=== PATIENT | male | born 1985 | race Hispanic/Latino ===

== ENCOUNTER 2017-05-19 19:35 | Emergency (ER) | payer OTHER ==
[2017-05-19 19:58] VITALS: BP 144/87; PULSE 90; RESP 16; TEMP 98.6; O2SAT 100
[2017-05-19] MEDS ORDERED: Amoxicillin-Clav 875-125 mg Tab PO STA (20:28)
[2017-05-19] MEDS ORDERED: Lidocaine 1% Inj (20ml) IJ STA (20:28)
[2017-05-19] MEDS ORDERED: Tdap Vaccine 0.5 ml Vial (10-64 yrs) IM ONE ×2 (20:28→21:01)
--- NOTE | 2017-05-19 20:31 | ED PDOC ---
HPI: Skin/Bite Injury Time Seen by Provider: 05/19/17 20:07 Chief Complaint (Nursing): Lower Extremity Problem/Injury Chief Complaint (Provider): Dog bite History Per: Patient History/Exam Limitations: no limitations Onset/Duration Of Symptoms: Mins (just prior to arrival) Current Symptoms Are (Timing): Still Present Additional Complaint(s): 32 year old male presents to the emergency room for evaluation of a dog bite sustained just prior to arrival. Patient was bit by his own dog, whose vaccines are up to date. He states his dog became agitated after another dog across the street began barking, and patient was bit on the right leg when he attempted to restrain his dog. Patient's tetanus is not up to date. PMD: None - Animal Bite Description Of The Animal: Family Pet Animal's Immunization Status: UTD Past Medical History Reviewed: Historical Data, Nursing Documentation, Vital Signs Vital Signs: Last Vital Signs Temp 98.6 F 05/19/17 19:55 Pulse 90 05/19/17 19:55 Resp 16 05/19/17 19:55 BP 144/87 05/19/17 19:55 Pulse Ox 100 05/19/17 20:35 - Medical History PMH: No Chronic Diseases - Surgical History Other surgeries: Cleft palate repair surgery as - Family History Family History: States: Unknown Family Hx - Living Arrangements Living Arrangements: With Family - Social History Current smoker - smoking cessation education provided: No Alcohol: Social Drugs: Denies - Immunization History Hx Tetanus Toxoid Vaccination: No - Home Medications Home Medications: Ambulatory Orders Medication Instructions Recorded Amoxicillin/Clavulanate [Augmentin 1 tab PO BID #14 tab 05/19/17 875 MG-125 MG] - Allergies Allergies/Adverse Reactions: Allergies Allergy/AdvReac Type Severity Reaction Status Date / Time No Known Allergies Allergy Verified 05/19/17 19:55 Review of Systems ROS Statement: Except As Marked, All Systems Reviewed And Found Negative Musculoskeletal: Positive for: Other (dog bite right leg) Physical Exam - Reviewed Nursing Documentation Reviewed: Yes Vital Signs Reviewed: Yes - Physical Exam Appears: Positive for: Well, Non-toxic, No Acute Distress Head Exam: Positive for: ATRAUMATIC, NORMAL INSPECTION, NORMOCEPHALIC Skin: Positive for: Normal Color. Negative for: Rash Eye Exam: Positive for: Normal appearance Extremity: Positive for: Other (2 cm flap laceration noted to medial right knee , with minimal active bleeding) Neurologic/Psych: Positive for: Alert, Oriented - ECG O2 Sat by Pulse Oximetry: 100 (RA) Pulse Ox Interpretation: Normal Medical Decision Making Medical Decision Making: Initial Impression: 32 year old with dog bite Time: 20:28 Plan: Tetanus booster given in ED Lidocaine 1% ordered for procedure Initial dose of Augmentin, 1 tab PO, given in ED Procedure note: Under sterile conditions laceration to right knee was anesthetized with 7 cc 1% lidocaine, good anesthesia was achieved, wound was irrigated with saline and Betadine. 3 simple interrupted sutures were used to loosely approximate wound edges. Good wound approximation was achieved. Sterile gauze wrap applied, N/V intact s/p placement. Procedure was tolerated well by patient, no complications. Rx augmentin given. Advised NSAID for pain, wound check 2 days and suture removal 10 days. Scribe Attestation: Documented by Nelly Buenrostro, acting as a scribe for Karen Redmond PA-C Provider Scribe Attestation: All medical record entries made by the Scribe were at my direction and personally dictated by me. I have reviewed the chart and agree that the record accurately reflects my personal performance of the history, physical exam, medical decision making, and the department course for this patient. I have also personally directed, reviewed, and agree with the discharge instructions and disposition. Disposition - Clinical Impression Clinical Impression: Dog bite, Laceration, Requires a booster tetanus - Patient ED Disposition Is Patient to be Admitted: No Counseled Patient/Family Regarding: Diagnosis, Need For Followup, Rx Given - Disposition Referrals: [facility] [Outside] Disposition: Routine/Home Disposition Time: 21:34 Condition: STABLE Additional Instructions: Keep wound clean and dry. Take rx meds as directed. Over the counter advil - 3 tabs every 6 hrs - for pain. Wash wound daily with soap and water and apply neosoprin once per day only. Suture removal 10 days. Return immediately for any signs of infection. Prescriptions: Amoxicillin/Clavulanate [Augmentin 875 MG-125 MG] 1 tab PO BID #14 tab Instructions: Diphtheria and Tetanus Toxoids, and Acellular Pertussis Vaccine, Animal Bites (DC), Laceration Repair With Stitches (DC) Forms: [employer] (Vietnamese)
[2017-05-19] MEDS ORDERED: Amoxicillin-Clav 875-125 mg Tab PO ONE (21:01)
[2017-05-19] MEDS ORDERED: Povidone Iodine Topical 10% Sol ONE (21:04)
== END 2017-05-19 23:58 | disposition home or self-care (01) ==
LOC: H.ER 19:35
DX: S81.011A Laceration without foreign body, right knee, initial encounter (principal); W54.0XXA Bitten by dog, initial encounter; Y92.89 Other specified places as the place of occurrence of the external cause; Z23 Encounter for immunization